=== PATIENT | female | born 1970 | race African-American/Black ===

== ENCOUNTER 2017-07-11 09:39 | Emergency (ER) | payer OTHER ==
--- OUTSIDE RECORDS SUMMARY | 2017-07-11 09:57 | XMS REPORT ---
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 Payers Type Date Identification Numbers Payment Provider Subscriber Commercial Policy Number: [id number] Manfredshimon Dru Cárdenas PayID: [id number] [address] [place] [address] Problems Date Description Provider Status Onset: 06/30/2017 Allergic urticaria Alan Nolasco MD Active Onset: 05/11/2015 Rheumatoid arthritis Alan Nolasco MD Active Onset: 05/11/2015 Idiopathic urticaria Alan Nolasco MD Active Family History Date Family Member(s) Problem(s) Comments General Unknown Social History Type Date Description Comments Smoke-Free Home is smoke-free Cigarette Use Never Smoked Cigarettes Smoking Patient has never smoked Smoking No Second Hand Smoke Exposure Allergies, Adverse Reactions, Alerts Date Description Reaction Status Severity Comments 02/25/2015 Codeine Antitussive Cough active 02/04/2015 Darvocet-N 100 active 02/04/2015 Doxycycline Calcium active 02/04/2015 Penicillins active 02/04/2015 Latex Exam Gloves active 02/04/2015 Sulfa (Sulfonamide Antibiotics) active Medications Medication Date Status Form Strength Qnty SIG Indications Ordering Provider Clarinex 06/30 Active Tablets 5mg 30tab one tablet L50.0 s every in the Pita Nolasco MD morning Xyzal 06/30 Active Tablets 5mg 30tab take 1 tablet L50.0 Christopher Allergy 24HR s (5 mg) po qhs Pita Nolasco MD Epipen 2-Shawn 02/04 Active Solution 0.3mg/0.3 inject 0.3 Auto-Inje ML milliliter ct (0.3 mg) by intramuscular route once as needed for anaphylaxis for 99 days Ventolin HFA Active Aerosol 108(90Bas Unknown e) mcg/Act Rhinocort Active Aerosol 32mcg/Act Unknown Benadryl Active Capsules 25mg Unknown Dye-Free Allergyliqui d-Gels Active Unknown Complete Xyzal Active Tablets 5mg take 1 tablet Unknown Allergy 24H (5 mg) by oral route once daily as needed Pulmicort Active Aerosol 180mcg/Ac 2 inhalation Unknown Flexhal t in in the morning and at night Zyrtec 05/11 Hx Tablets 10mg 30tab one tablet by L50.1 Kaliopher Allergy /2014 s mouth every Pita Nolasco MD - evening 06/30 Nexium 24HR Hx - 06/30 Vital Signs Date Vital Result Comment 06/30/2017 BP Systolic 115 mmHg BP Diastolic 78 mmHg Height 69 inches 5'9" Weight 165.00 lb BMI (Body Mass Index) 24.4 kg/m2 Heart Rate 73 /min Respiratory Rate 16 /min Body Temperature 96.8 F O2 % BldC Oximetry 97 % 05/11/2015 BP Systolic 112 mmHg BP Diastolic 68 mmHg Height 69 inches 5'9" Weight 175.00 lb BMI (Body Mass Index) 25.8 kg/m2 Heart Rate 88 /min Respiratory Rate 16 /min Results Description No Information Procedures Description No Information Encounters Type Date Location Provider CPT E/M Dx Office Visit 05/11/2015 1:00p [place] [address] L50.1 M06.9 Plan of Care 06/30/2017 - Alan Nolasco MDL50.0 Allergic urticariaNew Medication: Clarinex 5 mgXyzal Allergy 24HR 5 mgL50.1 Idiopathic urticaria
--- OUTSIDE RECORDS SUMMARY | 2017-07-11 09:57 | XMS REPORT ---
:1970 External Reference #:[id number] Author Organization [facility] Address 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 Payers Type Date Identification Numbers Payment Provider Subscriber Commercial Policy Number: [id number] Pierre Dru Cárdenas PayID: [id number] [address] [place] [address] Problems Date Description Provider Status Onset: 05/11/2015 Rheumatoid arthritis Alan Nolasco MD Active Onset: 05/11/2015 Idiopathic urticaria Alan Nolasco MD Active Social History Type Date Description Comments Smoke-Free Home is smoke-free Cigarette Use Never Smoked Cigarettes Smoking Patient has never smoked Allergies, Adverse Reactions, Alerts Date Description Reaction Status Severity Comments 02/25/2015 Codeine Antitussive Cough active 02/04/2015 Darvocet-N 100 active 02/04/2015 Doxycycline Calcium active 02/04/2015 Penicillins active 02/04/2015 Latex Exam Gloves active 02/04/2015 Sulfa (Sulfonamide Antibiotics) active Medications Medication Date Status Form Strength Qnty SIG Indications Ordering Provider Epipen 2-Shawn 02/04 Active Solution 0.3mg/0.3 inject 0.3 Auto-Inje ML milliliter ct (0.3 mg) by intramuscular route once as needed for anaphylaxis for 99 days Ventolin HFA Active Aerosol 108(90Bas Unknown /0000 e) mcg/Act Rhinocort Active Aerosol 32mcg/Act Unknown Benadryl Active Capsules 25mg Unknown Dye-Free Allergyliqui d-Gels Active Unknown Complete Xyzal Active Tablets 5mg take 1 tablet Unknown Allergy 24HR (5 mg) by oral route once daily as needed Pulmicort Active Aerosol 180mcg/Ac 2 inhalation Unknown Flexhal t in in the morning and at night Zyrtec 05/11 Hx Tablets 10mg 30tab one tablet by L50.1 Alan Allergy /2014 s mouth every Pita Nolasco MD - evening 06/30 Nexium 24HR Hx Unknown - 06/30 Vital Signs Date Vital Result [...] CPT E/M Dx Office Visit 05/11/2015 1:00p [place] [address] L50.1 M06.9 Plan of Care 05/11/2015 - Alan Nolasco MDL50.1 Idiopathic urticariaNew Medication: Zyrtec Allergy 10 mgM06.9 Rheumatoid arthritis, unspecified
[2017-07-11 10:01] VITALS: BP 105/69
--- NOTE | 2017-07-11 10:34 | UC ---
Cardiac HPI - HPI Summary HPI Summary: PT STARTED TAMIFLU FOR FLU SX YESTERDAY PER HER PCP. HAS HAD COUGH AND CHEST CONGESTION AND SOB DUE TO THIS VIRAL ILLNESS BUT TODAY STATES SHE DEVELOPED SHARP PAIN BELOW HER RIGHT BREAST WHICH FEELS DIFFERENT. PAIN IS INTERMITTENT. PT IS CONCERNED THAT THERE IS SOMETHING GOING ON OTHER THAN JUST THE FLU. - History of Current Complaint Stated Complaint: CHEST PAIN FLU SYMPTOMS Time Seen by Provider: 07/11/17 09:44 Hx Obtained From: Patient, Family/Cafe Operator - Onset/Duration: Sudden Onset, Lasting Days, Still Present Timing: Intermittent Episodes Lasting: Initial Severity: Moderate Current Severity: Moderate Pain Intensity: 8 Chest Pain Location: Right Anterior Character: Tightness, Pressure/Squeezing Aggravating Factor(s): Nothing Alleviating Factor(s): Spontaneous Resolution - Allergy/Home Medications Allergies/Adverse Reactions: Allergies Allergy/AdvReac Type Severity Reaction Status Date / Time Aluminum Chloride Allergy Intermediate Swelling Verified 07/11/17 10:01 Codeine Allergy Intermediate Hives Verified 07/11/17 10:01 Doxycycline Allergy Intermediate Hives Verified 07/11/17 10:01 Latex Allergy Intermediate Hives Verified 07/11/17 10:01 Penicillins Allergy Intermediate Nausea Verified 07/11/17 10:01 Propoxyphene Allergy Intermediate Hives Verified 07/11/17 10:01 [From Darlokesh-N] Sulfa Antibiotics Allergy Intermediate Hives Verified 07/11/17 10:01 Home Medications: Home Medications Albuterol HFA INHALER* [Ventolin HFA Inhaler*] 2 puff INH Q4H PRN 07/11/17 [ History Confirmed 07/11/17] Budesonide Flexhaler 180 (NF) [Pulmicort Flexhaler 180 mcg/act (NF)] 1 puff INH BID 07/11/17 [History Confirmed 07/11/17] Calcium 500 mg PO DAILY 07/11/17 [History Confirmed 07/11/17] Oseltamivir CAP* [Tamiflu CAP*] 75 mg PO BID 07/11/17 [History Confirmed ] PMH/Surg Hx/FS Hx/Imm Hx - Additional Past Medical History Additional PMH: RA Neurological History: Migraine - Surgical History Surgical History: Yes Surgery Procedure, Year, and Place: - Family History Known Family History: Positive: Cardiac Disease, Hypertension - Social History Alcohol Use: Rare Substance Use Type: None Smoking Status (MU): Never Smoked Tobacco - Immunization History Most Recent Influenza Vaccination: fall 2013 Most Recent Tetanus Shot: unk Most Recent Pneumonia Vaccination: fall 2013 Review of Systems Constitutional: Fever, Fatigue ENT: Nasal Discharge Respiratory: Shortness Of Breath, Cough Cardiovascular: Chest Pain Gastrointestinal: Negative Musculoskeletal: Myalgia Neurological: Headache All Other Systems Reviewed And Are Negative: Yes Physical Exam Triage Information Reviewed: Yes Appearance: No Pain Distress, Well-Nourished, Ill-Appearing - MILD Eyes: Positive: Conjunctiva Clear ENT: Positive: Hearing grossly normal Neck: Positive: Supple, Nontender, No Lymphadenopathy Respiratory Exam: Normal Respiratory: Positive: Other: - NO PAIN WITH PALPATION Cardiovascular: Positive: Tachycardia Abdomen Description: Positive: Soft Musculoskeletal: Positive: No Edema Neurological: Positive: Alert Psychological: Positive: Age Appropriate Behavior Skin: Negative: rashes Diagnostics - EKG Cardiac Rate: NL - 97 BPM Cardiac Rhythm: Sinus: Normal Ectopy: None ST Segment: Normal - Assessment/Plan Course Of Treatment: [place] [facility] [place] [facility] [place] - Clinical Impression Provider Diagnoses: CHEST PAIN Discharge - Discharge Plan Condition: Stable Disposition: OTHER Discharge Disposition Comment: [place] [facility] [place] [facility] Patient Education Materials: Chest Pain (ED) Referrals: Cindy Calzada MD [Primary Care Provider] - If Needed Additional Instructions: UNCLEAR CAUSE OF YOUR DISCOMFORT. YOUR SYMPTOMS MAY BE DUE TO YOUR FLU SYMPTOMS BUT WOULD RECOMMEND ED EVALUATION TO RULE OUT OTHER POSSIBLE CAUSES. [facility] [place] [facility] [place] HERE.
== END 2017-07-11 10:47 ==
LOC: UCEAST 09:39
DX: R07.9 Chest pain, unspecified (principal); Z88.0 Allergy status to penicillin; Z88.2 Allergy status to sulfonamides; Z88.3 Allergy status to other anti-infective agents; Z91.040 Latex allergy status
CPT/HCPCS: 93005; 99212; G0463

== ENCOUNTER 2017-07-11 11:03 | Emergency (ER) | payer OTHER ==
[2017-07-11 11:35] LABS: ABS Basophils 0 10^3/ul (0-0.2); ABS Eosinophils 0.1 10^3/ul (0-0.6); ABS Lymphocytes 1.4 10^3/ul (1.0-4.8); ABS Monocytes 0.4 10^3/ul (0-0.8); ABS Neutrophils 1.8 10^3/ul (1.5-7.7); ABS Nucleated RBC 0 10^3/ul; Eosinophil % 1.6 % (0-6); Hematocrit 42 % (35-47); Hemoglobin 14.2 g/dl (12.0-16.0); Lymphocyte % 38.2 % (25-47); Mean Corpuscular HGB Conc 34 g/dl (31-36); Mean Corpuscular Hemoglobin 32 pg (27-31); Mean Corpuscular Volume 95 fL (80-97); Mean Platelet Volume 8 um3 (7.4-10.4); Nucleated Red Blood Cells % 0; Platelet Count 229 10^3/ul (150-450); Red Cell Distribution Width 13 % (10.5-15); White Blood Count 3.7 10^3/ul (3.5-10.8)
--- NOTE | 2017-07-11 12:20 | RAD ---
INDICATION: Chest pain COMPARISON: None TECHNIQUE: An AP portable view obtained at 1203 hours is submitted. FINDINGS: Bones/Soft Tissues: There are no acute bony findings. Cardiomediastinal: The cardiomediastinal silhouette is normal. Lungs: There are no infiltrates. Pleura: There are no pleural effusions. Other: None IMPRESSION: NO ACTIVE DISEASE.
[2017-07-11] MEDS ORDERED: Ketorolac INJ* 30 MG/ML 1 ML VIAL IV PUSH ONE (12:33)
[2017-07-11] MEDS ORDERED: Ketorolac INJ* 60 MG/2 ML VIAL IM ONE (12:37)
[2017-07-11 13:14] VITALS: BP 113/76
--- NOTE | 2017-07-12 17:45 | ED ---
Jorge Alberto Frausto Angela, scribed for Dashawn Alston MD on 07/11/17 at 1128 . HPI Chest Pain - HPI Summary HPI Summary: This pt is a 47 y/o female presenting to [facility] referred by [facility] c/o chest pain since yesterday. Pt states she has had flu symptoms for the past 4 days ( including cough and chest congestion). She was diagnosed with influenza and was prescribed Tamiflu by her PCP. Pt reports she started to take Tamiflu last evening and has taken 2 tablets of Tamiflu since then. Pt notes intermittent chest pain that is different from any other pain, located below her right breast. Her pain is described as sharp. She went to Urgent Care today and had a normal EKG, but was advised to come to the ED for further testing. LMP: June 24. - History of Current Complaint Chief Complaint: EDChestPainROMI Time Seen by Provider: 07/11/17 11:12 Hx Obtained From: Patient Hx Last Menstrual Period: 06/24/17 Onset/Duration: Started Hours Ago, Still Present Timing: Lasting Hours Current Severity: Severe Pain Intensity: 8 Pain Scale Used: 0-10 Numeric Chest Pain Location: Right Anterior Chest Pain Radiates: No Character: Sharp/Stabbing - Sharp Aggravating Factor(s): Nothing Alleviating Factor(s): Nothing Associated Signs and Symptoms: Positive: Chest Pain, Other: - flu symptoms - Allergy/Home Medications Allergies/Adverse Reactions: Allergies Allergy/AdvReac Type Severity Reaction Status Date / Time MS Aluminum Chloride Allergy Intermediate Swelling Verified 07/11/17 10:01 [Aluminum Chloride] MS Codeine [Codeine] Allergy Intermediate Hives Verified 07/11/17 10:01 MS Doxycycline [Doxycycline] Allergy Intermediate Hives Verified 07/11/17 10:01 MS Latex [Latex] Allergy Intermediate Hives Verified 07/11/17 10:01 MS Penicillins [Penicillins] Allergy Intermediate Nausea Verified 07/11/17 10:01 MS Propoxyphene Allergy Intermediate Hives Verified 07/11/17 10:01 [From Darvocet-N] MS Sulfa Antibiotics Allergy Intermediate Hives Verified 07/11/17 10:01 [Sulfa Antibiotics] Home Medications: Home Medications Budesonide NASAL (NF) [Rhinocort Aqua (NF)] 1 spray BOTH NARES BID PRN 07/11/17 [History Confirmed 07/11/17] Desloratadine-Pseudoephedrine [Clarinex-D 12 Hour] 1 tab PO QAM 07/11/17 [ History Confirmed 07/11/17] LevoCETirizine TAB (NF) [Xyzal TAB (NF)] 5 mg PO QPM 07/11/17 [History Confirmed 07/11/17] Multivitamins/Minerals TAB* [Theragran/minerals TAB*] 1 tab PO DAILY 07/11/17 [ History Confirmed 07/11/17] PMH/Surg Hx/FS Hx/Imm Hx Endocrine/Hematology History: Denies: Hx Diabetes Cardiovascular History: Denies: Hx Hypertension, Hx Pacemaker/ICD Respiratory History: Reports: Hx Asthma History: Denies: Hx Dialysis, Hx Renal Disease Sensory History: Denies: Hx Hearing Aid Psychiatric History: Denies: Hx Panic Disorder - Cancer History Hx Chemotherapy: No Hx Radiation Therapy: No - Surgical History Surgery Procedure, Year, and Place: Infectious Disease History: No Infectious Disease History: Denies: Traveled Outside the [place] in Last 30 Days - Family History Known Family History: Positive: Cardiac Disease, Hypertension - Social History Alcohol Use: Rare Substance Use Type: Reports: None Smoking Status (MU): Never Smoked Tobacco Review of Systems Negative: Fever, Chills ENT: Other - flu symptoms, chest congestion Positive: Chest Pain Positive: Cough Musculoskeletal: Negative Skin: Negative Neurological: Negative All Other Systems Reviewed And Are Negative: Yes Physical Exam - Summary Physical Exam Summary: VITAL SIGNS: Reviewed. GENERAL: Patient is a well-developed and nourished female who is lying comfortable in the stretcher. Patient is not in any acute respiratory distress. HEAD AND FACE: No signs of trauma. No ecchymosis, hematomas or skull depressions. No sinus tenderness. EYES: PERRLA, EOMI x 2, No injected conjunctiva, no nystagmus. EARS: Hearing grossly intact. Ear canals and tympanic membranes are within normal limits. MOUTH: Oropharynx within normal limits. NECK: Supple, trachea is midline, no adenopathy, no JVD, no carotid bruit, no c- spine tenderness, neck with full ROM. CHEST: Symmetric, no tenderness at palpation LUNGS: Clear to auscultation bilaterally. No wheezing or crackles. CVS: Regular rate and rhythm, S1 and S2 present, no murmurs or gallops appreciated. ABDOMEN: Soft, non-tender. No signs of distention. No rebound no guarding, and no masses palpated. Bowel sounds are normal. EXTREMITIES: FROM in all major joints, no edema, no cyanosis or clubbing. NEURO: Alert and oriented x 3. No acute neurological deficits. Speech is normal and follows commands. SKIN: Dry and warm Triage Information Reviewed: Yes Vital Signs On Initial Exam: Initial Vitals Temp Pulse Resp BP Pulse Ox 98.4 F 91 20 110/77 99 07/11/17 11:04 07/11/17 11:04 07/11/17 11:04 07/11/17 11:04 07/11/17 11:04 Vital Signs Reviewed: Yes Diagnostics - Vital Signs Vital Signs Temp Pulse Resp BP Pulse Ox 07/11/17 11:04 98.4 F 91 20 110/77 99 - Laboratory Lab Results: Lab Results 07/11/17 07/11/17 07/11/17 Range/Units 11:25 11:25 11:25 WBC 3.7 (3.5-10.8) 10^3/ul RBC 4.40 (4.0-5.4) 10^6/ul Hgb 14.2 (12.0-16.0) g/dl Hct 42 (35-47) % MCV 95 (80-97) fL MCH 32 H (27-31) pg MCHC 34 (31-36) g/dl RDW 13 (10.5-15) % Plt Count 229 (150-450) 10^3/ul MPV 8 (7.4-10.4) um3 Neut % (Auto) 48.2 (38-83) % Lymph % (Auto) 38.2 (25-47) % Storey % (Auto) 11.3 H (1-9) % Eos % (Auto) 1.6 (0-6) % Baso % (Auto) 0.7 (0-2) % Absolute Neuts (auto) 1.8 (1.5-7.7) 10^3/ul Absolute Lymphs (auto) 1.4 (1.0-4.8) 10^3/ul Absolute Monos (auto) 0.4 (0-0.8) 10^3/ul Absolute Eos (auto) 0.1 (0-0.6) 10^3/ul Absolute Basos (auto) 0 (0-0.2) 10^3/ul Absolute Nucleated RBC 0 10^3/ul Nucleated RBC % 0 Sodium 138 (133-145) mmol/L Potassium 3.8 (3.5-5.0) mmol/L Chloride 103 (101-111) mmol/L Carbon Dioxide 29 (22-32) mmol/L Anion Gap 6 (2-11) mmol/L BUN 11 (6-24) mg/dL Creatinine 0.83 (0.51-0.95) mg/dL Est GFR ( Amer) 95.2 (>60) Est GFR (Non-Af Amer) 74.0 (>60) BUN/Creatinine Ratio 13.3 (8-20) Glucose 78 (70-100) mg/dL Calcium 9.5 (8.6-10.3) mg/dL Magnesium 2.6 (1.9-2.7) mg/dL Total Bilirubin 0.40 (0.2-1.0) mg/dL AST 15 (13-39) U/L ALT 8 (7-52) U/L Alkaline Phosphatase 67 (34-104) U/L Total Creatine Kinase 38 (10-223) U/L CK-MB (CK-2) 0.3 L (0.6-6.3) ng/mL Troponin I 0.00 (<0.04) ng/mL B-Natriuretic Peptide 25 ( - 100) pg/mL Total Protein 7.7 (6.4-8.9) g/dL Albumin 4.3 (3.2-5.2) g/dL Globulin 3.4 (2-4) g/dL Albumin/Globulin Ratio 1.3 (1-3) TSH 1.54 (0.34-5.60) mcIU/mL Thyroxine (T4) 8.17 (6.09-12.23) mcg/mL Beta HCG, Quant < 0.60 mIU/mL Result Diagrams: 07/11/17 11:25 07/11/17 11:25 Lab Statement: Any lab studies that have been ordered have been reviewed, and results considered in the medical decision making process. - Radiology Chest XR Xray Interpretation: No Acute Changes - IMPRESSION: No active disease. Dr. Alston has reviewed this radiology report. Radiology Interpretation Completed By: Radiologist - EKG 11:09 Cardiac Rate: NL EKG Rhythm: Sinus Rhythm - at 91 bpm EKG Interpretation: no ST elevation. Re-Evaluation - Re-Evaluation First Eval Re-Evaluation Time: 12:35 Comment: I reviewed the chest XR with the pt. Chest Pain Course/Dx - Course Course Of Treatment: This pt is a 47 y/o female presenting to [facility] referred by [facility] c/o chest pain since yesterday. Pt states she has had flu symptoms for the past 4 days (including cough and chest congestion). She was diagnosed with influenza and was prescribed Tamiflu by her PCP. Pt reports she started to take Tamiflu last evening and has taken 2 tablets of Tamiflu since then. Pt notes intermittent chest pain that is different from any other pain, located below her right breast. Her pain is described as sharp. She went to Urgent Care today and had a normal EKG, but was advised to come to the ED for further testing. LMP: June 24. Test results without any significant abnormalities. Chest XR is negative for any acute pathology. The pt is not hypoxic or tachycardic, therefore I have no suspicion for pulmonary embolism. The pt has influenza and is currently taking Tamiflu. I believe all her symptoms are secondary to the flu. Therefore she will be discharged home with follow up from her PCP. Pt is hemodynamically stable, alert and oriented x3. - Chest Pain Differential Diagnosis/HQI/PQRI: Acute DE, ACS, Angina, CHF, Chest Wall, GI Disease, Lower Respiratory Infection, Pulmonary Edema - Diagnoses Provider Diagnoses: Atypical chest pain, Influenza Discharge - Discharge Plan Condition: Stable Disposition: HOME Prescriptions: Naproxen [Naprosyn 500 mg] 500 mg PO BID PRN #20 tab PRN Reason: Pain Patient Education Materials: Chest Pain (ED), Influenza (ED) Referrals: Cindy Calzada MD [Primary Care Provider] - 3 Days Additional Instructions: Please follow up with your primary care provider. RETURN TO THE ED FOR ANY WORSENING SYMPTOMS. The documentation as recorded by the Jorge Alberto catalan Angela accurately reflects the service I personally performed and the decisions made by me, Dashawn Alston MD.
== END 2017-07-11 13:13 | disposition home or self-care (01) ==
LOC: ED 11:03
DX: R07.89 Other chest pain (principal); J11.1 Influenza due to unidentified influenza virus with other respiratory manifestations; Z88.3 Allergy status to other anti-infective agents; Z88.0 Allergy status to penicillin; Z88.8 Allergy status to other drugs, medicaments and biological substances; Z88.2 Allergy status to sulfonamides
CPT/HCPCS: 36415; 71045; 80053; 82550; 82553; 83735; 83880; 84436; 84443; 84484; 84702; 85025; 93005; 96374; 99282; J1885

== ENCOUNTER 2018-02-23 06:01 | Day surgery (SDC) | payer OTHER ==
[~2018-02-23 06:01] MED LIST: Buffered Lidocaine 0.9% SYRIN* 5 ML/SYR SYRINGE INTRADERM ONE; Dexamethasone IV* 4 MG/ML 1 ML (4 MG) IV SLOW PU ONE; Famotidine IV* 10 MG/ML 2 ML (20 mg) IV ONE
[2018-02-23] MEDS ORDERED: Famotidine IV* 10 MG/ML 2 ML (20 mg) ONE (06:04)
[2018-02-23] MEDS ORDERED: Dexamethasone IV* 4 MG/ML 1 ML (4 MG) ONE (06:04)
[2018-02-23] MEDS ORDERED: Gadoteridol* (CONTRAST) 279.3 MG/ML 10 ML IV ONE (06:22)
[2018-02-23] MEDS ORDERED: Propofol* 10 MG/ML 20 ML BTL IV PUSH ONE (06:59)
[2018-02-23] MEDS ORDERED: Lidocaine 2% PF * 5 ML VIAL ONE (06:59)
[2018-02-23] MEDS ORDERED: Gadobenate* (CONTRAST) 529 MG/ML 10 ML SDV IV ONE (07:00)
[2018-02-23] MEDS ORDERED: Succinylcholine* 20 MG/ML 10 ML VIAL ONE (07:12)
[2018-02-23] MEDS ORDERED: Naloxone* 0.4 MG/ML 1 ML VIAL IV PRN (08:37)
[2018-02-23] MEDS ORDERED: DiMENhydriNATE IV* 50 MG/ML VIAL IV PUSH PRN (08:37)
--- NOTE | 2018-02-23 08:55 | RAD ---
HISTORY: DIZZINESS, VISUAL DISTURBANCES COMPARISONS: None TECHNIQUE: The following sequences were obtained of the neck after localizing images: Stacked axial 2-D [id number] MR angiography of the neck; 3-D axial [id number]-zy-emsowm MR angiography of the carotid bifurcations. Additionally 3-D multiphase contrast-enhanced MR angiography of the neck was performed after the administration of a gadolinium-based intravenous contrast agent. . Multiple 3-D maximum intensity projection reconstructions are submitted for review. FINDINGS: AORTA: The aortic arch is not well visualized secondary to technique and motion artifact. There is no obvious ostial or proximal stenosis of the cephalic great vessels. RIGHT VERTEBRAL ARTERY: The right vertebral artery is patent and without stenosis. There is in plane flow saturation artifact of the horizontal portion of the right vertebral artery. LEFT VERTEBRAL ARTERY: The left vertebral artery is patent, without stenosis. There is in plane flow saturation artifact of the horizontal portion of the left vertebral artery. DOMINANCE: The vertebral arteries are codominant. RIGHT COMMON CAROTID ARTERY: The right common carotid artery is patent. RIGHT INTERNAL CAROTID ARTERY: There is no right internal carotid artery stenosis by NASCET criteria. LEFT COMMON CAROTID ARTERY: The left common carotid artery is patent. LEFT INTERNAL CAROTID ARTERY: There is no left internal carotid artery stenosis by NASCET criteria. ADDITIONAL FINDINGS: The visualized intracranial circulation is unremarkable. IMPRESSION: NO INTERNAL CAROTID ARTERY STENOSIS BY NASCET CRITERIA. CPT II Codes: 3100F
--- NOTE | 2018-02-23 08:57 | RAD ---
HISTORY: DIZZINESS, VISUAL DISTURBANCES COMPARISONS: August 08, 2003 TECHNIQUE: 3-D axial [id number]-jg-iqthgh MR angiography was performed of the head to include the jackson of [place]. Multiple 3-D maximum intensity projection reconstructions are also submitted for review. FINDINGS: RIGHT VERTEBRAL ARTERY: The distal right vertebral artery is unremarkable, without stenosis. LEFT VERTEBRAL ARTERY: The distal left vertebral artery is unremarkable, without stenosis. DOMINANCE: The vertebral arteries are codominant. DISTAL RIGHT CERVICAL INTERNAL CAROTID ARTERY: The distal right cervical internal carotid artery is unremarkable. DISTAL LEFT CERVICAL INTERNAL CAROTID ARTERY: The distal left cervical internal carotid artery is unremarkable. INTRACRANIAL CIRCULATION: There is no aneurysm, vascular malformation, occlusion, or stenosis of the visualized intracranial circulation. The anterior communicating artery complex is clear. Bilateral posterior communicating arteries are identified. There is an infundibulum of the left posterior communicating artery. This is stable from the previous examination. OTHER FINDINGS: None IMPRESSION: NO ANEURYSM, VASCULAR MALFORMATION, OCCLUSION, OR STENOSIS OF THE VISUALIZED INTRACRANIAL CIRCULATION.
--- NOTE | 2018-02-23 08:59 | RAD ---
HISTORY: DIZZINESS, HEADACHE COMPARISONS: April 11, 2014 TECHNIQUE: The following sequences were obtained of the head: Sagittal T1-weighted images, axial T2-weighted images, axial FLAIR images, axial susceptibility weighted images, axial T1-weighted images. Additionally, axial diffusion-weighted images were obtained with calculated apparent diffusion coefficients. Additionally, sagittal, coronal, and axial T1-weighted images were obtained after contrast enhancement with a gadolinium-based intravenous contrast agent. FINDINGS: HEMORRHAGE/INFARCT: There is no hemorrhage or acute infarct. MASSES/SHIFT: There is no mass or shift. EXTRA-AXIAL SPACES/MENINGES: There are no extra-axial fluid collections. SULCI AND VENTRICLES: The sulci and ventricles are normal in size and position for the patient's stated age. CEREBRUM: There are no focal parenchymal abnormalities. BRAINSTEM: There are no focal parenchymal abnormalities. CEREBELLUM: There are no focal parenchymal abnormalities. The cerebellar tonsils are normal in size and position. SELLA: The sella is normal. PINEAL: The pineal region is clear. CP ANGLE/TEMPORAL BONES: The labyrinthine structures are grossly normal. VESSELS: Normal flow-voids are noted within the visualized vertebral vasculature. DIFFUSION ABNORMALITIES: There are no diffusion abnormalities. PARANASAL SINUSES/MASTOIDS: The paranasal sinuses are clear. ORBITS: The orbits are unremarkable. BONES AND SOFT TISSUE: No bone or soft tissue abnormalities are noted. OTHER: There is no abnormal enhancement. IMPRESSION: NORMAL BRAIN
[2018-02-23 11:51] VITALS: BP 114/75
== END 2018-02-23 11:56 | disposition home or self-care (01) ==
LOC: OR 06:01
PROVIDERS: ATTEND Family Medicine
DX: G43.709 Chronic migraine without aura, not intractable, without status migrainosus (principal); R42 Dizziness and giddiness; H53.8 Other visual disturbances; R41.89 Other symptoms and signs involving cognitive functions and awareness; R55 Syncope and collapse; K21.9 Gastro-esophageal reflux disease without esophagitis; M19.90 Unspecified osteoarthritis, unspecified site; F41.9 Anxiety disorder, unspecified; F40.240 Claustrophobia; Z87.442 Personal history of urinary calculi
CPT/HCPCS: 70544; 70549; 70553; 81025; A9579; J0330; J1100; J2704